=== PATIENT | female | born 1945 | race Caucasian/White ===

== ENCOUNTER 2017-10-30 03:54 | Inpatient (IN) ==
[2017-10-30 05:10] LABS: Basophils # 0.1 10*3/uL (0.0-0.2); Basophils % 0.3 % (0.0-0.8); Eosinophils # 0.2 10*3/uL (0.0-0.87); Hematocrit 36.6 VOL% (35.7-47.0); Hemoglobin 12.2 GM/DL (12.0-16.0); Immature Granulocytes % 0.6 %; Immature Granulocytes Absolute 0.12 #; Lymphocytes % 4.8 % (21.3-54.2); Mean Corpuscular HGB Conc 33.3 GM/DL (32-36); Mean Corpuscular Hemoglobin 30 PG (27-34); Mean Corpuscular Volume 90.6 FL (87-102); Mean Platelet Volume 9.8 FL (9.6-12.0); Monocytes # 0.7 10*3/uL (0.11-0.8); Monocytes % 3.7 % (1.7-12.7); Neutrophils # 17.8 10*3/uL (1.4-7.4); Neutrophils % 89.6 % (38.7-73.9); Platelet Count 255 T/CUMM (130-400); Red Blood Count 4.04 MC/CUMM (3.8-5.5); Red Cell Distribution Width 12.9 % (9.3-17.3); White Blood Count 19.8 T/CUMM (4-12)
[2017-10-30 05:27] LABS: Albumin 2.2 G/DL (3.4-5.0); Bilirubin,Total 0.6 MG/DL (0.2-1.0); Calcium 8.7 MG/DL (8.5-10.1); Osmolality,Calculated 296.3 MOS/KG (273-304); Potassium 3.9 MMOL/L (3.5-5.1); Total Protein 6.6 G/DL (6.4-8.3)
[2017-10-30 05:53] LABS: Band Neutrophils 7 % (0-10); Eosinophils 1 % (0-10); Hypochromasia 1+; Lymphocytes 6 % (20-55); Platelet Estimate Adequate; Segmented Neutrophils 85 % (50-85); Total Cells Counted 100
[2017-10-30 06:02] LABS: Amorphous Crystals,Urine Occasional /HPF (Few); Apearance,Urine CLOUDY (Clear); Bacteria,Urine Moderate /HPF (Few); Bilirubin,Urine Negative (Negative); Blood, Urine Moderate mg/dL (Negative); Glucose,Urine (UA) Negative (Negative); Ketones,Urine Negative (Negative); Mucus,Urine Few /LPF (Occasional); Nitrite,Urine Negative (Negative); Protein,Urine 100 MG/DL; RBC,Urine 218 /HPF (0-4); Squamous Epithelial Cell,Urine Occasional /HPF (0-10); Urine Specific Gravity 1.013 (1.001-1.035); Urine Urobilinogen < 2.0 EU/DL (0.2-1.0); WBC,Urine 2162 /HPF (0-6)
[2017-10-30 06:05] LABS: Urine Color Yellow (Yellow)
[2017-10-30] MEDS ORDERED: cefTRIAXone 1,000 MG in SODIUM CHLORIDE 0.9% 100 ML IV STA (07:11)
[2017-10-30] MEDS ORDERED: ONDANSETRON 4 MG/2 ML VIAL IV PRN (08:01)
[2017-10-30] MEDS ORDERED: ACETAMINOPHEN 325 MG TABLET PO PRN (08:01)
[2017-10-30] MEDS ORDERED: cefTRIAXone 1,000 MG in SYRINGE 1 EACH IV SCH (08:30)
[2017-10-30] MEDS: ARIPiprazole 2 MG TABLET PO SCH (10:20)
[2017-10-30] MEDS: BENZTROPINE 2 MG TABLET PO SCH (10:21)
[2017-10-30] MEDS: PANTOPRAZOLE 40 MG TABLET PO SCH (10:21)
[2017-10-30] MEDS: TRIAMTERENE/HCTZ 37.5-25 MG CAPSULE PO SCH (10:21)
[2017-10-30] MEDS: CETIRIZINE 10 MG TABLET PO SCH (10:21)
[2017-10-30] MEDS: ENOXAPARIN 30 MG/0.3 ML SYRINGE SUBCUT SCH (10:24)
[2017-10-30] MEDS: SODIUM CHLORIDE 0.9% 1,000 ML IV SCH ×2 (10:28→21:08)
[2017-10-30] MEDS: ZINC OXIDE PASTE 113 GM TUBE TOP SCH ×2 (16:19→21:08)
[2017-10-30] MEDS ORDERED: CITALOPRAM 20 MG TABLET PO SCH (21:00)
[2017-10-30] MEDS ORDERED: ZIPRASIDONE 20 MG CAPSULE PO SCH (21:00)
[2017-10-30] MEDS ORDERED: PRAVASTATIN 20 MG TABLET PO SCH (21:00)
[2017-10-31] MEDS: SODIUM CHLORIDE 0.9% 1,000 ML IV SCH (03:49)
[2017-10-31 06:03] LABS: Basophils % 0.2 % (0.0-0.8); Eosinophils # 0.1 10*3/uL (0.0-0.87); Hematocrit 31.3 VOL% (35.7-47.0); Hemoglobin 10.6 GM/DL (12.0-16.0); Immature Granulocytes % 0.6 %; Immature Granulocytes Absolute 0.08 #; Lymphocytes % 8.1 % (21.3-54.2); Mean Corpuscular HGB Conc 33.9 GM/DL (32-36); Mean Corpuscular Hemoglobin 30 PG (27-34); Mean Corpuscular Volume 88.4 FL (87-102); Mean Platelet Volume 10.2 FL (9.6-12.0); Monocytes # 0.5 10*3/uL (0.11-0.8); Monocytes % 3.7 % (1.7-12.7); Neutrophils # 10.8 10*3/uL (1.4-7.4); Neutrophils % 86.4 % (38.7-73.9); Platelet Count 226 T/CUMM (130-400); Red Blood Count 3.54 MC/CUMM (3.8-5.5); Red Cell Distribution Width 12.9 % (9.3-17.3); White Blood Count 12.5 T/CUMM (4-12)
[2017-10-31 06:38] LABS: Calcium 6.7 MG/DL (8.5-10.1); Osmolality,Calculated 284.5 MOS/KG (273-304); Potassium 3.1 MMOL/L (3.5-5.1); Thyroid Stimulating Hormone 2.15 uIU/ml (0.358-3.74)
[2017-10-31 07:00] LABS: Band Neutrophils 2 % (0-10); Eosinophils 4 % (0-10); Hypochromasia 1+; Lymphocytes 3 % (20-55); Platelet Estimate Adequate; Segmented Neutrophils 89 % (50-85); Total Cells Counted 100
[2017-10-31] MEDS ORDERED: LEVOTHYROXINE 112 MCG TABLET PO SCH (07:00)
[2017-10-31] MEDS ORDERED: cefTRIAXone 1,000 MG in SYRINGE 1 EACH IV SCH (08:00)
[2017-10-31 08:38] VITALS: BP 101/51
[2017-10-31] MEDS: PANTOPRAZOLE 40 MG TABLET PO SCH (08:54)
[2017-10-31] MEDS: ARIPiprazole 2 MG TABLET PO SCH (08:54)
[2017-10-31] MEDS: BENZTROPINE 2 MG TABLET PO SCH (08:54)
[2017-10-31] MEDS: ENOXAPARIN 30 MG/0.3 ML SYRINGE SUBCUT SCH (08:54)
[2017-10-31] MEDS: CETIRIZINE 10 MG TABLET PO SCH (08:54)
[2017-10-31] MEDS ORDERED: POTASSIUM CHLORIDE 20 MEQ TABLET PO SCH (09:00)
[2017-10-31] MEDS: TRIAMTERENE/HCTZ 37.5-25 MG CAPSULE PO SCH (10:10)
== END 2017-10-31 11:19 | DRG 690 ==
LOC: EDUNIT# → EDBD → N.ED 03:54 → N.EDINP 07:20 → N.5E 07:34